=== PATIENT | female | born 1960 ===

== ENCOUNTER 2017-07-07 15:54 | Outpatient (CLI) | payer OTHER ==
--- NOTE | 2017-07-07 16:36 | Mammography Report ---
BILATERAL DIGITAL SCREENING MAMMOGRAM with CAD: 07/07/17 15:54:00 CLINICAL: Routine screening. COMPARISON:06/27/12 mammogram from [facility] FINDINGS: The breasts are almost entirely fatty.A right lower inner parenchymal asymmetry is unchanged compared to the prior exam. No mass, architectural distortion or suspicious calcifications. IMPRESSION: No mammographic evidence of malignancy. BI-RADS CATEGORY: 2 -- Benign RECOMMENDATION: Routine mammographic screening in one year. COMMENT: Patient follow-up letters are generated by our [employer] application.
== END 2017-07-07 15:55 | disposition home or self-care (01) ==
LOC: SPVWC 15:54
PROVIDERS: ATTEND Obstetrics & Gynecology
DX: Z12.31 Encounter for screening mammogram for malignant neoplasm of breast (principal)
CPT/HCPCS: 77067